=== PATIENT | female | born 1980 | race Caucasian/White ===

== ENCOUNTER 2021-07-10 08:46 | Outpatient (CLI) | payer BC | END 2021-07-10 08:47 | disposition home or self-care (01) | LOC: BICMAMMO 08:46 | PROVIDERS: ATTEND Obstetrics & Gynecology | DX: Z12.31 Encounter for screening mammogram for malignant neoplasm of breast (principal); Z80.3 Family history of malignant neoplasm of breast | CPT/HCPCS: 77063; 77067 ==

== ENCOUNTER 2022-10-22 09:05 | Outpatient (CLI) | payer BC | END 2022-10-22 09:06 | disposition home or self-care (01) | LOC: BICMAMMO 09:05 | PROVIDERS: ATTEND Obstetrics & Gynecology | DX: Z12.31 Encounter for screening mammogram for malignant neoplasm of breast (principal); Z80.3 Family history of malignant neoplasm of breast | CPT/HCPCS: 77063; 77067 ==

== ENCOUNTER 2023-10-27 08:33 | Outpatient (CLI) | payer BC | END 2023-10-27 08:34 | disposition home or self-care (01) | LOC: BICMAMMO 08:33 | PROVIDERS: ATTEND Obstetrics & Gynecology | DX: Z12.31 Encounter for screening mammogram for malignant neoplasm of breast (principal); Z80.3 Family history of malignant neoplasm of breast; Z85.820 Personal history of malignant melanoma of skin | CPT/HCPCS: 77063; 77067 ==